=== PATIENT | female | born 2000 | race Caucasian/White ===

== ENCOUNTER 2022-05-03 17:24 | Emergency (ER) | payer OTHER ==
[~2022-05-03] VITALS: Ht 144.8 cm; Wt 47.6 kg
[2022-05-03 17:29] VITALS: BP 105/65
--- NOTE | 2022-05-03 17:30 | NUR ---
21 Y/O FEMALE, PATIENT PRESENTS TO ED WITH C/O COUGH, FEVER 101F AT HOME, CHILLS, "WHEN I TALK I FEEL TIRED", NEW ONSET OF SOB AND CP. PT STATES S/S STARTED LAST NIGHT, DENIES ANYONE SICK AT HOME WITH SAME SYMPTOMS. DENIES N/V/D; SKIN IS PINK/WARM/DRY; AAOX4 WITH EVEN AND STEADY GAIT; LUNGS CLEAR BL; HR EVEN AND TACHYCARDIC; PATIENT STATES PAIN OF 5/10 AT THIS TIME, THROAT PAIN;ER MD MADE AWARE OF PT STATUS. PMH: ASTHMA NKA MED: ADVIL (LAST NIGHT)
--- NOTE | 2022-05-03 17:35 | NUR ---
pt swabbed for joe and influenza
[2022-05-03] MEDS ORDERED: ACETAMINOPHEN 325 MG TAB PO ONE (17:40)
--- NOTE | 2022-05-03 18:01 | NUR ---
iliana simon assessing in arnol at this time
--- NOTE | 2022-05-03 18:08 | NUR ---
pt being taken to xray via wheelchair
[2022-05-03] MEDS ORDERED: IBUP-2213 PO (18:36)
[2022-05-03] MEDS ORDERED: PROM118S5 PO (18:36)
--- NOTE | 2022-05-03 19:24 | NUR ---
Patient discharged with v/s stable. Written and verbal after care instructions given and explained. Patient alert, oriented and verbalized understanding of instructions. Ambulatory with steady gait. All questions addressed prior to discharge. ID band removed. Patient advised to follow up with PMD. Rx of ibuprofen adn promethazine/ dm syrup given. Opportunity to ask questions provided and answered.
[2022-05-03 19:25] VITALS: BP 108/68
== END 2022-05-03 19:24 | disposition home or self-care (01) ==
LOC: MED 17:24
DX: B34.9 Viral infection, unspecified (principal); Z20.822 Contact with and (suspected) exposure to COVID-19; J45.909 Unspecified asthma, uncomplicated; Z79.899 Other long term (current) drug therapy
CPT/HCPCS: 71045; 81002; 81025; 99284

== ENCOUNTER 2022-07-29 18:29 | Emergency (ER) | payer OTHER ==
[~2022-07-29 18:29] MED LIST: IBUP-2213 PO; PROM118S5 PO
--- NOTE | 2022-07-29 18:56 | NUR ---
CALLED TO TRIAGE NO ANSWER IN LOBBY OR OUTSIDE
--- NOTE | 2022-07-29 19:18 | NUR ---
PATIENT LEFT WITHOUT BEING SEEN BY DR. ANDERSON. NO FURTHER CARE PROVIDED FOR PATIENT.
--- NOTE | 2022-07-29 19:18 | NUR ---
3RD NO ANSWER TO TRIAGE
== END 2022-07-29 18:56 | disposition left against medical advice (07) ==
LOC: MED 18:29
DX: T14.8XXA Other injury of unspecified body region, initial encounter (principal); Z53.21 Procedure and treatment not carried out due to patient leaving prior to being seen by health care provider; W57.XXXA Bitten or stung by nonvenomous insect and other nonvenomous arthropods, initial encounter; Y93.89 Activity, other specified; Y92.89 Other specified places as the place of occurrence of the external cause; Y99.8 Other external cause status
CPT/HCPCS: 81025; 99281; 99283